=== PATIENT | male | born 1990 | race Hispanic/Latino ===

== ENCOUNTER 2020-04-19 20:43 | Emergency (ER) | payer SELFPAY ==
[2020-04-19] MEDS ORDERED: LIDOCAINE 1% MPF 5 ML VIAL ONE (21:09)
--- NOTE | 2020-04-19 21:42 | ER ---
Nurse's Notes [facility] Name: Juan Liz Age: 29 yrs Sex: Male : 1990 Arrival Date: 04/19/2020 Time: 20:50 Bed 13 Private MD: Diagnosis: Laceration without foreign body of thigh Presentation: 04/19 20:52 Chief complaint: Patient states: "I CUT MY LEG WITH A KNIFE WHILE COOKING ". ls4 Coronavirus screen: At this time, the client does not indicate any symptoms associated with coronavirus-19. Ebola Screen: No symptoms or risks identified at this time. Complicating Factors: There are no complicating factors for this patient. Initial Sepsis Screen: Does the patient meet any 2 criteria? No. Patient's initial sepsis screen is negative. Does the patient have a suspected source of infection? No. Patient's initial sepsis screen is negative. Risk Assessment: Do you want to hurt yourself or someone else? Patient reports no desire to harm self or others. Onset of symptoms was April 19, 2020 at 18:00. Care prior to arrival: None. 20:52 Method Of Arrival: Ambulatory ls4 20:52 Acuity: MARIUSZ 4 ls4 Triage Assessment: 20:56 General: Appears in no apparent distress. Behavior is calm, cooperative. Pain: Denies ls4 pain. Injury Description: Laceration sustained to left quadriceps. Historical: - Allergies: 20:56 No Known Allergies; ls4 - Home Meds: 20:56 None [Active]; ls4 - PMHx: 20:56 None; ls4 - PSHx: 20:56 None; ls4 - Immunization history:: Adult Immunizations up to date, Last tetanus immunization: up to date. - Social history:: Smoking status: Patient denies any tobacco usage or history of. Screenin:52 Abuse screen: Denies threats or abuse. Denies injuries from another. Nutritional ls4 screening: No deficits noted. Tuberculosis screening: No symptoms or risk factors identified. Fall Risk None identified. Assessment: 21:10 Injury Description: Laceration is clean, 0.5 to 2.5 cm long. vc 21:10 Musculoskeletal: No deficits noted. vc 21:10 General: Appears in no apparent distress. comfortable, slender, well groomed, Behavior vc is calm, cooperative, appropriate for age. Pain: Complains of pain in left quadriceps Pain does not radiate. Pain currently is 3 out of 10 on a pain scale. Neuro: Level of Consciousness is awake, alert, obeys commands, Oriented to person, place, time, situation, Appropriate for age. Cardiovascular: No deficits noted. Respiratory: No deficits noted. GI: No signs and/or symptoms were reported involving the gastrointestinal system. : No signs and/or symptoms were reported regarding the genitourinary system. EENT: No signs and/or symptoms were reported regarding the EENT system. Derm: Wound noted left quadriceps. Vital Signs: 20:56 BP 144 / 87; Pulse 81; Resp 20; Temp 98.8(O); Pulse Ox 98% ; Weight 86.18 kg; Height 6 ls4 ft. 3 in. (190.50 cm); Pain 5/10; 20:56 Body Mass Index 23.75 (86.18 kg, 190.50 cm) ls4 ED Course: 20:50 Patient arrived in ED. cl3 20:51 Danni Sullivan FNP-C is [facility]. kb 20:51 Stephen Aguirre MD is Attending Physician. kb 20:52 Patient has correct armband on for positive identification. ls4 20:56 Triage completed. ls4 20:57 Anisha Kendall, JULIUS is Primary Nurse. ls4 21:20 Assist provider with laceration repair on left quadriceps that was 2.5 cm. or less vc using sutures. Set up tray. Performed by Danni GAMBOA Patient tolerated well. 21:50 Patient did not have IV access during this emergency room visit. vc 22:00 Arm band placed on right wrist. vc Administered Medications: 21:33 Drug: Lidocaine (1 %) 1 vials Volume: 5 ml; Route: Infiltration; rv Outcome: 21:42 Discharge ordered by MD. kb 21:50 Patient left the ED. rv 21:50 Discharged to home ambulatory. vc 21:50 Condition: good 21:50 Discharge instructions given to patient, Instructed on discharge instructions, follow up and referral plans. Demonstrated understanding of instructions, follow-up care. Signatures: Danni Sullivan FNP-C FNP-Blayne Lawson RN RN rv Anisha Kendall RN RN ls4 Chelsea Finley cl3 [place]cote, Monica, RN RN vc
--- NOTE | 2020-04-19 21:42 | EDPHYS ---
Physician Documentation [facility] Name: Juan Liz Age: 29 yrs Sex: Male : 1990 Arrival Date: 04/19/2020 Time: 20:50 Bed 13 Private MD: ED Physician Stephen Aguirre HPI: 04/19 21:17 This 29 yrs old Male presents to ER via Ambulatory with complaints of kb Laceration To Leg. 21:17 The patient has a laceration related to: cooking, from a knife, occurred at home, and kb there are no complicating factors. The injury was accidental. The laceration(s) is(are) located on the left quadriceps. Onset: The symptoms/episode began/occurred just prior to arrival. Associated signs and symptoms: The patient has no apparent associated signs or symptoms. The patient has not experienced similar symptoms in the past. The patient has not recently seen a physician. Pt reports he was cooking and accidentally cut his leg. Historical: - Allergies: 20:56 No Known Allergies; ls4 - Home Meds: 20:56 None [Active]; ls4 - PMHx: 20:56 None; ls4 - PSHx: 20:56 None; ls4 - Immunization history:: Adult Immunizations up to date, Last tetanus immunization: up to date. - Social history:: Smoking status: Patient denies any tobacco usage or history of. ROS: 21:17 Constitutional: Negative for fever, chills, and weight loss, Cardiovascular: Negative kb for chest pain, palpitations, and edema, Respiratory: Negative for shortness of breath, cough, wheezing, and pleuritic chest pain, Abdomen/GI: Negative for abdominal pain, nausea, vomiting, diarrhea, and constipation, Back: Negative for injury and pain, MS/Extremity: Negative for injury and deformity, Neuro: Negative for headache, weakness, numbness, tingling, and seizure. 21:17 Skin: Positive for laceration(s), of the left quadriceps. Exam: 21:16 Constitutional: This is a well developed, well nourished patient who is awake, alert, kb and in no acute distress. Head/Face: Normocephalic, atraumatic. Chest/axilla: Normal chest wall appearance and motion. Nontender with no deformity. No lesions are appreciated. Cardiovascular: Regular rate and rhythm with a normal S1 and S2. No gallops, murmurs, or rubs. Normal PMI, no JVD. No pulse deficits. Respiratory: Lungs have equal breath sounds bilaterally, clear to auscultation and percussion. No rales, rhonchi or wheezes noted. No increased work of breathing, no retractions or nasal flaring. Abdomen/GI: Soft, non-tender, with normal bowel sounds. No distension or tympany. No guarding or rebound. No evidence of tenderness throughout. MS/ Extremity: Pulses equal, no cyanosis. Neurovascular intact. Full, normal range of motion. Neuro: Awake and alert, GCS 15, oriented to person, place, time, and situation. Cranial nerves II-XII grossly intact. Motor strength 5/5 in all extremities. Sensory grossly intact. Cerebellar exam normal. Normal gait. 21:16 Skin: injury, laceration(s), the wound is approximately 2.5 cm(s), of the left quadriceps, that can be described as clean, no foreign body, linear, without bleeding. Vital Signs: 20:56 BP 144 / 87; Pulse 81; Resp 20; Temp 98.8(O); Pulse Ox 98% ; Weight 86.18 kg; Height 6 ls4 ft. 3 in. (190.50 cm); Pain 5/10; 20:56 Body Mass Index 23.75 (86.18 kg, 190.50 cm) ls4 Laceration: 21:41 Wound Repair of 2.5cm ( 1.0in ) subcutaneous laceration to left quadriceps. Linear kb shaped.. Distal neuro/vascular/tendon intact. Anesthesia: Wound infiltrated with 4 mls of 1% lidocaine. Wound prep: Extensive cleansing with hibiclenz by me, Wound irrigation with saline by ky. Skin closed with 5 4-0 Prolene using simple sutures and sterile technique. Dressed with Neosporin, bandaid. Patient tolerated well. MDM: 20:55 Patient medically screened. kb 21:16 Data reviewed: vital signs, nurses notes. Data interpreted: Pulse oximetry: on room air kb is 98 %. Interpretation: normal. 21:41 Counseling: I had a detailed discussion with the patient and/or guardian regarding: the kb historical points, exam findings, and any diagnostic results supporting the discharge/admit diagnosis, the need for outpatient follow up, a family practitioner, to return to the emergency department if symptoms worsen or persist or if there are any questions or concerns that arise at home. 04/19 20:55 Order name: Prolene, Sutures; Complete Time: 21:43 kb 04/19 20:55 Order name: Dressing - Wound; Complete Time: 21:43 kb 04/19 20:55 Order name: Gloves, Sterile; Complete Time: 21:43 kb 04/19 20:55 Order name: Setup Suture Tray; Complete Time: 21:43 kb Administered Medications: 21:33 Drug: Lidocaine (1 %) 1 vials Volume: 5 ml; Route: Infiltration; rv Disposition: 04/20 06:17 Co-signature as Attending Physician, Stephen Aguirre MD. [email or web address] Disposition: 04/19/20 21:42 Discharged to Home. Impression: Laceration without foreign body of thigh. - Condition is Stable. - Discharge Instructions: Laceration Care, Adult, [id number]. - Medication Reconciliation Form, Thank You Letter, Antibiotic Education, Prescription Opioid Use form. - Follow up: Emergency Department; When: As needed; Reason: Worsening of condition. Follow up: Private Physician; When: 2 - 3 days; Reason: Recheck today's complaints, Continuance of care, Re-evaluation by your physician. - Notes: Keep clean and dry Have sutures removed in 7-10 days Signatures: Danni Sullivan, ASSISTANT FRONT DESK MANAGER-C ASSISTANT FRONT DESK MANAGER-Ckb Blayne Abarca RN RN rv Anisha Kendall RN RN 4 Stephen Aguirre MD MD [email or web address] Corrections: (The following items were deleted from the chart) 04/19 21:50 21:42 04/19/2020 21:42 Discharged to Home. Impression: Laceration without foreign body rv of thigh. Condition is Stable. Forms are Medication Reconciliation Form, Thank You Letter, Antibiotic Education, Prescription Opioid Use. Follow up: Emergency Department; When: As needed; Reason: Worsening of condition. Follow up: Private Physician; When: 2 - 3 days; Reason: Recheck today's complaints, Continuance of care, Re-evaluation by your physician. kb
[2020-04-23 00:40] VITALS: BP 144/87; TEMP 98.8; O2SAT 98
== END 2020-04-19 21:50 | disposition home or self-care (01) ==
LOC: ER 20:43
PROC: 0JQM0ZZ Repair Left Upper Leg Subcutaneous Tissue and Fascia, Open Approach (ICD-10-PCS; principal; 2020-04-19)
DX: S71.112A Laceration without foreign body, left thigh, initial encounter (principal); W26.0XXA Contact with knife, initial encounter; Y93.G3 Activity, cooking and baking; Y92.009 Unspecified place in unspecified non-institutional (private) residence as the place of occurrence of the external cause
CPT/HCPCS: 99283